=== PATIENT | female | born 1930 | race Hispanic/Latino ===

== ENCOUNTER 2021-06-09 10:15 | Emergency (ER) | payer MEDICARE, OTHER ==
[~2021-06-09] VITALS: Ht 162.6 cm; Wt 56.7 kg
== END 2021-06-09 12:37 | disposition home or self-care (01) ==
LOC: FSED 10:41
DX: S62.617A Displaced fracture of proximal phalanx of left little finger, initial encounter for closed fracture (principal); W01.0XXA Fall on same level from slipping, tripping and stumbling without subsequent striking against object, initial encounter; Y93.01 Activity, walking, marching and hiking; Y92.89 Other specified places as the place of occurrence of the external cause; I10 Essential (primary) hypertension; E11.9 Type 2 diabetes mellitus without complications; E78.5 Hyperlipidemia, unspecified
CPT/HCPCS: 99283